=== PATIENT | male | born 1955 | race African-American/Black ===

== ENCOUNTER 2017-08-20 23:18 | Emergency (ER) | payer OTHER | END 2017-08-21 00:02 | disposition home or self-care (01) | LOC: E/R 08-21 00:02 | DX: Z02.89 Encounter for other administrative examinations (principal); R40.2142 Coma scale, eyes open, spontaneous, at arrival to emergency department; R40.2252 Coma scale, best verbal response, oriented, at arrival to emergency department; R40.2362 Coma scale, best motor response, obeys commands, at arrival to emergency department; J44.9 Chronic obstructive pulmonary disease, unspecified; Z87.891 Personal history of nicotine dependence | CPT/HCPCS: 99282 ==